=== PATIENT | female | born 2000 | race Caucasian/White ===

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

== ENCOUNTER 2019-03-19 00:54 | Emergency (ER) | payer OTHER ==
[~2019-03-19] VITALS: Ht 154.9 cm; Wt 64.9 kg
[~2019-03-19 00:54] MED LIST changes: +MECLIZINE HCL25 MG PO; +NEXPLANON68 MG SUB-Q
--- OUTSIDE RECORDS SUMMARY | 2019-03-19 00:56 | XMS ---
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 Care History Medical/Surgical 12/30/2018 [facility] CASE MANAGEMENT REFERRAL MADE- PATIENT HAS [facility] AND NO PCP. E.D. VISIT COUNT (12 MO.) [facility] 2 [facility] TOTAL 11 NOTE: Visits indicate total known visits. ED/UCC VISIT TRACKING (12 MO.) 03/19/2019 00:55 [facility] [place] [facility] [place] TYPE: Emergency COMPLAINT: - URINE PROBLEM 03/11/2019 22:35 [facility] TYPE: Emergency DIAGNOSES: - Sprain of unspecified site of right knee, initial encounter - R KNEE INJ 02/25/2019 22:40 [employer] [place] TYPE: Emergency DIAGNOSES: - Acute maxillary sinusitis, unspecified - HEADACHE EAR ACHE VOMITING 12/29/2018 18:31 [facility] [place] TYPE: Emergency COMPLAINT: - DIZZINESS DIAGNOSES: - Dizziness and giddiness - Other terminal manager (current) drug therapy 12/28/2018 23:04 [facility] [place] TYPE: Emergency DIAGNOSES: - headaches, dizziness 10/05/2018 16:36 [employer] [place] TYPE: Emergency DIAGNOSES: - Sprain of unspecified site of right knee, initial encounter - KNEE INJURY 09/07/2018 20:[address] [place] TYPE: Emergency DIAGNOSES: - Generalized abdominal pain - ABDOMEN PAIN/APPENDICITIS 07/05/2018 16:[address] [place] TYPE: Emergency COMPLAINT: - VOMITING BLOOD 04/30/2018 18:[address] [place] TYPE: Emergency COMPLAINT: - KIDNEY INFECTION DIAGNOSES: - Acute kidney failure, unspecified - Tubulo-interstitial nephritis, not specified as acute or chronic 04/26/2018 07:[address] [place] TYPE: Emergency COMPLAINT: - UTI DIAGNOSES: - Tubulo-interstitial nephritis, not specified as acute or chronic 03/21/2018 13:14 [facility] [place] TYPE: Emergency COMPLAINT: - UTI DIAGNOSES: - Acute cystitis with hematuria INPATIENT VISIT TRACKING (12 MO.) No inpatient visits to display in this time frame [email or web address]
[2019-03-19] MEDS ORDERED: KEFLEX500 MG PO (01:51)
[2019-03-19] MEDS ORDERED: FLAGYL500 MG PO (01:51)
== END 2019-03-19 02:10 | disposition home or self-care (01) ==
LOC: ED 00:54
DX: N39.0 Urinary tract infection, site not specified (principal); A59.9 Trichomoniasis, unspecified
CPT/HCPCS: 81001; 84703; 87088; 99284